=== PATIENT | female | born 1940 ===

== ENCOUNTER → 2019-03-06 20:57 | Outpatient (ROUT) | payer MEDICARE, SELFPAY ==
[2019-03-06 21:34] LABS: Add Manual Diff / Slide Review NO; Basophils Absolute Auto 0 /uL (0-100); Basophils Percent Auto 0.4 % (0-2); Eosinophils Absolute Auto 100 /uL (0-450); Eosinophils Percent Auto 1.6 % (2-4); Hematocrit 43.8 % (36-46); Hemoglobin 14.7 g/dL (12.0-16.0); Lymphocytes Absolute Auto 2000 /uL (1100-4500); Lymphocytes Percent Auto 31.5 % (25-40); Mean Corpuscular HGB Conc 33.6 % (30-36); Mean Corpuscular Hemoglobin 29.2 PG (26-34); Monocytes Absolute Auto 600 /uL (0-900); Monocytes Percent Auto 9.4 % (3-14); Neutrophils Absolute Auto 3600 /uL (1500-7000); Neutrophils Percent Auto 57.1 % (50-75); Platelet Count 237 X10^3/uL (150-400); Red Blood Cell Count 5.04 X10^6/uL (4.0-5.2); Red Cell Distribution Width 13.1 % (11.6-14.8); White Blood Cell Count 6.3 X10^3/uL (4.5-11.0)
[2019-03-06 22:57] LABS: HEMOLYSIS < 15 (0-50); Iron 86 ug/dL (37-170)
[2019-03-06 22:59] LABS: Alanine Aminotransferase 21 IU/L (9-52); Albumin 4.3 g/dL (3.5-5.0); Albumin Globulin Ratio 1.3 (1.0-2.8); Alkaline Phosphatase 88 U/L (38-126); Aspartate Aminotransferase 29 IU/L (14-36); BUN Creatinine Ratio 21.4 (6-22); Bilirubin Total 0.5 mg/dL (0.2-1.3); Blood Urea Nitrogen 15 mg/dL (7-17); Calcium 10.2 mg/dL (8.4-10.2); Carbon Dioxide 28 mmol/L (22-32); Chloride 102 mmol/L (98-107); Cholesterol 208 mg/dL (140-199); Estimated Glomerular Filt Rate > 60.0 mL/min (>60); Globulin 3.4 g/dL (1.7-4.1); Glucose 126 mg/dL (80-110); HDL Cholesterol 43 mg/dL (40-60); HEMOLYSIS < 15 (0-50); LDL Cholesterol Calculated 108 mg/dL (<100); Potassium 4.5 mmol/L (3.4-5.1); Sodium 139 mmol/L (137-145); Total Protein 7.7 g/dL (6.3-8.2); Triglycerides 283 mg/dL (35-150)
[2019-03-06 23:08] LABS: Percent Iron Saturation 25 % (15-50); Total Iron Binding Capacity 348 ug/dL (265-497); Transferrin 275 mg/dL (206-381)
[2019-03-06 23:29] LABS: Hemoglobin A1C% w Est Avg Glu 6.6 % (4.0-6.0); TSH w/ Reflex to FT4 1.61 uIU/mL (0.47-4.68)
[2019-03-07 00:05] LABS: Folate > 20.0 ng/mL (2.76-20.0); Vitamin B12 416 pg/mL (239-931)
== END ==
PROVIDERS: Visit Provider Family Medicine
DX: E11.9 Type 2 diabetes mellitus without complications (principal); E03.9 Hypothyroidism, unspecified; R53.83 Other fatigue; Z00.00 Encounter for general adult medical examination without abnormal findings
CPT/HCPCS: 36415; 80053; 80061; 82607; 82728; 82746; 83036; 83540; 83550; 84443; 85025